=== PATIENT | female | born 1990 | race Two or more races ===

== ENCOUNTER 2021-08-06 15:05 | Emergency (ER) | payer MEDICAID, OTHER ==
[~2021-08-06] VITALS: Ht 152.4 cm; Wt 61.7 kg
[2021-08-06 16:22] VITALS: BP 148/87
[2021-08-06] MEDS ORDERED: IBUP600T27 PO (16:58)
[2021-08-06] MEDS ORDERED: IBUPROFEN 600 MG TAB PO ONE (17:15)
== END 2021-08-06 17:17 | disposition home or self-care (01) ==
LOC: EDBD 15:05 → ER 15:05
DX: S63.91XA Sprain of unspecified part of right wrist and hand, initial encounter (principal); Z79.1 Long term (current) use of non-steroidal anti-inflammatories (NSAID); V29.9XXA Motorcycle rider (driver) (passenger) injured in unspecified traffic accident, initial encounter; Y93.89 Activity, other specified; Y92.89 Other specified places as the place of occurrence of the external cause; Y99.8 Other external cause status
CPT/HCPCS: 29125; 73130